=== PATIENT | male | born 1955 | race Caucasian/White ===

== ENCOUNTER → 2020-09-22 | Outpatient (CLI) | payer MEDICARE ==
[~2020-09-22] MED LIST: ALPRAZOLAM XR1 MG PO; CYMBALTA60 MG PO; FISH OIL 1,0001 EAC1 PO; JANUVIA 100 MG100 MG PO; LIPITOR TAB 2020 MG PO; OXYCONTIN10 MG PO; TIROSINT150 MCG PO
== END ==
LOC: KOH-I 11:04
DX: F17.200 Nicotine dependence, unspecified, uncomplicated (principal)
CPT/HCPCS: 71271